=== PATIENT | male | born 1990 | race Caucasian/White ===

== ENCOUNTER 2016-10-10 23:23 | Emergency (ER) | payer SELFPAY ==
[~2016-10-10] VITALS: Ht 177.8 cm; Wt 84.4 kg
[~2016-10-10 23:23] MED LIST: PREDNISONE1 MG/ML PO
[2016-10-11] MEDS ORDERED: ERYTHROMYCIN O3.5 GM RIGHT EYE (00:39)
[2016-10-11] MEDS ORDERED: BENADRYL50 MG PO (00:39)
[2016-10-11 01:16] VITALS: BP 154/99
== END 2016-10-11 01:16 | disposition home or self-care (01) ==
LOC: EME 23:23
DX: H10.9 Unspecified conjunctivitis (principal); S00.261A Insect bite (nonvenomous) of right eyelid and periocular area, initial encounter; R60.1 Generalized edema; W57.XXXA Bitten or stung by nonvenomous insect and other nonvenomous arthropods, initial encounter
CPT/HCPCS: 99281; 99283; J1100

== ENCOUNTER 2017-03-21 08:58 | Emergency (ER) | payer SELFPAY ==
[~2017-03-21] VITALS: Ht 182.9 cm; Wt 79.6 kg
[~2017-03-21 08:58] MED LIST changes: +BENADRYL50 MG PO; +ERYTHROMYCIN O3.5 GM RIGHT EYE
[2017-03-21] MEDS ORDERED: PREDNISONE20 MG PO (09:51)
[2017-03-21 10:45] VITALS: BP 135/92
== END 2017-03-21 10:47 | disposition home or self-care (01) ==
LOC: EME 08:58
DX: L25.9 Unspecified contact dermatitis, unspecified cause (principal)
CPT/HCPCS: 99281; 99284